=== PATIENT | female | born 1960 | race Caucasian/White ===

== ENCOUNTER → 2023-10-04 13:47 | Outpatient (REF) | payer BC, SELFPAY | LOC: HWRCS 13:47 | PROVIDERS: ATTENDING PHYSICIAN Family Medicine | DX: R06.09 Other forms of dyspnea (principal) | CPT/HCPCS: 93306 ==

== ENCOUNTER → 2023-10-07 08:55 | Outpatient (REF) | payer BC, SELFPAY | LOC: RSP 08:55 | PROVIDERS: ATTENDING PHYSICIAN Family Medicine | DX: R05.3 Chronic cough (principal); R06.09 Other forms of dyspnea | CPT/HCPCS: 94727; 94729; 88738; 94010 ==